=== PATIENT | male | born 1940 | race Caucasian/White ===

== ENCOUNTER 2017-02-07 12:54 | Emergency (ER) | payer OTHER, MEDICARE ==
--- NOTE | 2017-02-07 13:00 | PDOC ---
History of Present Illness - General Stated Complaint: Blood Pressure Problem Time Seen by Provider: 02/07/17 12:59 - History of Present Illness Initial Comments: 02/07/17 12:59 Mr. Reddy is a 77 yo male with a significant past medical history of DMII and recent Left lower lobe resection who presents to the emergency department following syncopal episode. Per patient he was at a standing for 40+ minutes before he sat down - then got dizzy and lost consciousness briefly. He regained consciousness when EMS arrived and is currently sitting comfortably in bed. The patient denies chest pain, shortness of breath, headache and dizziness. Denies fever, chills, nausea, vomit, diarrhea and constipation. Denies dysuria, frequency, urgency and hematuria. Allergies: Levofloxacin, lorazepam PCP: Marco A Keller Past History - Past Medical History Allergies/Adverse Reactions: Allergies Allergy/AdvReac Type Severity Reaction Status Date / Time levofloxacin [From Levaquin] Allergy Verified 02/07/17 13:08 lorazepam [From Ativan] Allergy Verified 02/07/17 13:08 Home Medications: Ambulatory Orders Aspirin [Aspirin EC] 81 mg PO DAILY 02/07/17 Metformin HCl [Metformin HCl ER] 500 mg PO DAILY 02/07/17 Nateglinide [Starlix (Nf)] 120 mg PO BID 02/07/17 Nebivolol HCl [Bystolic] 2.5 mg PO DAILY 02/07/17 Simvastatin [Zocor -] 40 mg PO HS 02/07/17 Tamsulosin HCl [Flomax] 0.4 mg PO DAILY 02/07/17 Review of Systems - Review of Systems Comments:: 02/07/17 12:59 GENERAL/CONSTITUTIONAL: No fever or chills. No weakness. HEAD, EYES, EARS, NOSE AND THROAT: No change in vision. No ear pain or discharge. No sore throat. CARDIOVASCULAR: No chest pain or shortness of breath RESPIRATORY: No cough, wheezing, or hemoptysis. GASTROINTESTINAL: No nausea, vomiting, diarrhea or constipation. GENITOURINARY: No dysuria, frequency, or change in urination. MUSCULOSKELETAL: No joint or muscle swelling or pain. No neck or back pain. SKIN: No rash NEUROLOGIC: No headache, vertigo, loss of consciousness, or change in strength/ sensation. ENDOCRINE: No increased thirst. No abnormal weight change HEMATOLOGIC/LYMPHATIC: No anemia, easy bleeding, or history of blood clots. ALLERGIC/IMMUNOLOGIC: No hives or skin allergy. *Physical Exam - Physical Exam Comments: 02/07/17 12:59 GENERAL: Awake, alert, and fully oriented, in no acute distress HEAD: No signs of trauma, normocephalic, atraumatic EYES: PERRLA, EOMI, sclera anicteric, conjunctiva clear ENT: Auricles normal inspection, hearing grossly normal, nares patent, oropharynx clear without exudates. Moist mucosa NECK: Normal ROM, supple, no lymphadenopathy, JVD, or masses LUNGS: No distress, speaks full sentences, clear to auscultation bilaterally HEART: Regular rate and rhythm, normal S1 and S2, no murmurs, rubs or gallops, peripheral pulses normal and equal bilaterally. ABDOMEN: Soft, nontender, normoactive bowel sounds. No guarding, no rebound. No masses EXTREMITIES: Normal inspection, Normal range of motion, no edema. No clubbing or cyanosis. NEUROLOGICAL: Cranial nerves II through XII grossly intact. Normal speech, normal gait, no focal sensorimotor deficits SKIN: Warm, Dry, normal turgor, no rashes or lesions noted. ED Treatment Course - LABORATORY CBC & Chemistry Diagram: 02/07/17 13:34 02/07/17 13:20 Medical Decision Making - Medical Decision Making 02/07/17 13:34 Patient resting comfortably in bed with 100% O2 sat on room air and BP of 119/60 's. Patient suspects cause of episode is prolonged standing. Will perform standard syncopal workup and d/c to home if no concerning findings. 02/07/17 14:46 Labs as below and grossly unconcerning. Patient reports Cr /BUN always similarly elevated and follows-up with PCP RE this issue. Attempted to call PCP but unable to contact. Patient instructed to f/u with PCP as soon as possible. Copy of labs given to pt. D/Cing to home. Laboratory Results - last 24 hr 02/07/17 02/07/17 02/07/17 13:16 13:20 13:34 WBC 9.2 RBC 4.25 Hgb 12.5 Hct 37.2 MCV 87.5 MCH 29.4 MCHC 33.6 RDW 14.0 Plt Count 214 MPV 7.6 Neutrophils % 68.5 Lymphocytes % 20.2 Monocytes % 8.3 Eosinophils % 2.4 Basophils % 0.6 Sodium 138 Potassium 4.5 Chloride 103 Carbon Dioxide 26 Anion Gap 9 BUN 25 H Creatinine 2.0 H Creat Clearance w eGFR 32.56 POC Glucometer [phone] Random Glucose 165 H Calcium 8.6 Total Bilirubin 0.3 AST 15 ALT 24 Alkaline Phosphatase 60 Creatine Kinase 47 Troponin I < 0.02 Total Protein 6.6 Albumin 3.7 Urine Color Urine Appearance Urine pH Urine Protein Urine Glucose (UA) Urine Ketones Urine Blood Urine Nitrite Urine Bilirubin Urine Urobilinogen Ur Leukocyte Esterase Urine RBC Urine WBC Hyaline Casts Urine Mucus 02/07/17 13:34 WBC RBC Hgb Hct MCV MCH MCHC RDW Plt Count MPV Neutrophils % Lymphocytes % Monocytes % Eosinophils % Basophils % Sodium Potassium Chloride Carbon Dioxide Anion Gap BUN Creatinine Creat Clearance w eGFR POC Glucometer Random Glucose Calcium Total Bilirubin AST ALT Alkaline Phosphatase Creatine Kinase Troponin I Total Protein Albumin Urine Color Yellow Urine Appearance Slcloudy Urine pH 5.0 Urine Protein Negative Urine Glucose (UA) Negative Urine Ketones Negative Urine Blood Negative Urine Nitrite Negative Urine Bilirubin Negative Urine Urobilinogen Negative Ur Leukocyte Esterase Trace Urine RBC None Urine WBC 3 Hyaline Casts 20 Urine Mucus Rare 02/07/17 14:48 *DC/Admit/Observation/Transfer Diagnosis at time of Disposition: Syncope Qualifiers: Syncope type: unspecified Qualified Code(s): R55 - Syncope and collapse - Discharge Dispostion Disposition: HOME - Patient Instructions Printed Discharge Instructions: DI for Syncope in Adults (Fainting) Additional Instructions: Please present to PCP when able for evaluation.
[2017-02-07 13:08] VITALS: BMI 21.1
[2017-02-07] MEDS ORDERED: SODIUM CHLORIDE 1,000 ML IV STA (13:22)
[2017-02-07 13:45] LABS: BASOPHIL 0.6 % (0-2.0); EOSINOPHIL 2.4 % (0-4.5); MCH 29.4 pg (25.7-33.7); MCHC 33.6 g/dl (32.0-35.9); MEAN CELL VOLUME 87.5 fl (80-96); MEAN PLT VOLUME 7.6 fl (7.5-11.1); NEUTROPHILS 68.5 % (42.8-82.8); PLATELET COUNT 214 K/MM3 (134-434); WHITE BLOOD COUNT 9.2 K/mm3 (4.0-10.0)
[2017-02-07 13:51] LABS: URINE APPEARANCE SLCLOUDY; URINE BILIRUBIN NEGATIVE (NEGATIVE); URINE BLOOD NEGATIVE (NEGATIVE); URINE COLOR YELLOW; URINE GLUCOSE (UA) NEGATIVE (NEGATIVE); URINE KETONE NEGATIVE (NEGATIVE); URINE LEUK ESTERASE TRACE (NEGATIVE); URINE NITRITE NEGATIVE (NEGATIVE); URINE PROTEIN NEGATIVE (NEGATIVE); URINE UROBILINOGEN NEGATIVE mg/dL (0.2-1.0)
[2017-02-07 14:26] LABS: ALBUMIN 3.7 g/dl (3.4-5.0); ANION GAP 9 (8-16); BILIRUBIN,TOTAL 0.3 mg/dL (0.2-1.0); CALCIUM 8.6 mg/dL (8.5-10.1); CO2 26 mmol/L (21-32); GLUCOSE,RANDOM 165 mg/dL (74-106); SGOT/AST 15 U/L (15-37); SGPT/ALT 24 U/L (12-78); TOT PROT 6.6 g/dl (6.4-8.2)
[2017-02-07 14:29] LABS: ALK PHOS 60 U/L (45-117); CPK 47 IU/L (39-308); TROPONIN I < 0.02 ng/ml (0.00-0.05)
[2017-02-07 14:38] LABS: URINE HYALINE CAST 20 /lpf; URINE MUCUS RARE; URINE WBC 3 /hpf (3-5)
[2017-02-07 14:49] VITALS: BP 119/54; PULSE 74; TEMP 98.6
--- NOTE | 2017-02-08 09:25 | EKG ---
Test Reason : Blood Pressure : / mmHG Vent. Rate : 073 BPM Atrial Rate : 073 BPM P-R Int : 156 ms QRS Dur : 126 ms QT Int : 422 ms P-R-T Axes : 062 058 061 degrees QTc Int : 464 ms NORMAL SINUS RHYTHM RIGHT BUNDLE BRANCH BLOCK ABNORMAL ECG NO PREVIOUS ECGS AVAILABLE Confirmed by MD JULIUS, OC ([id number]) on 02/08/2017 9:25:03 AM Referred By: Confirmed By:OC MADRID MD
== END 2017-02-07 15:01 | disposition home or self-care (01) ==
LOC: JER 12:54
PROC: 3E0337Z Introduction of Electrolytic and Water Balance Substance into Peripheral Vein, Percutaneous Approach (ICD-10-PCS; principal; 2017-02-07)
DX: R55 Syncope and collapse (principal); E11.9 Type 2 diabetes mellitus without complications; Z79.84 Long term (current) use of oral hypoglycemic drugs; E78.00 Pure hypercholesterolemia, unspecified
CPT/HCPCS: 36415; 71020-TC; 80053; 81003; 81015; 84484; 85025; 93005; 93010; 96360; 99283-25